=== PATIENT | female | born 1990 | race Caucasian/White ===

== ENCOUNTER 2019-02-21 11:17 | Inpatient (IN) | payer BC, OTHER ==
[2019-02-21] MEDS ORDERED: Nalbuphine 10 MG/1 ML Vial IVPUSH PRN (12:27)
[2019-02-21] MEDS ORDERED: Ondansetron 4 MG/2 ML SDV IVPUSH PRN (12:27)
[2019-02-21] MEDS ORDERED: Calcium Carbonate 500 MG Tab.Chew PO PRN (12:27)
[2019-02-21] MEDS ORDERED: Sodium Chloride 0.9% 10 ML Syringe FLUSH PRN (12:27)
[2019-02-21] MEDS ORDERED: Oxytocin/Lactated Ringers 10 UNIT/1,000 ML BAG IV SCH ×2 (12:30)
--- NOTE | 2019-02-21 12:35 | PCM.LDHP ---
L&D History of Present Illness - General Date of Service: 02/21/19 Admit Problem/Dx: Patient Status Order with Admit Dx/Problem 02/21/19 11:40 Patient Status [ADT] Routine 02/21/19 12:27 Patient Status [ADT] Routine Admission Diagnosis/Problem Admission Diagnosis/Problem Spontaneous rupture of membranes Source of Information: Patient History Limitations: Reports: No Limitations - History of Present Illness Introduction:: Patient is a 28 y/o at 37 4/7 wks who presents with SROM. Thinks maybe had some smaller gushes of fluid around midnight. Did not have a large loss of fluid until late this morning. No strong contractions yet. Otherwise doing well - Related Data Allergies/Adverse Reactions: Allergies Allergy/AdvReac Type Severity Reaction Status Date / Time No Known Allergies Allergy Verified 02/21/19 11:39 Past Medical History [employer] History: Reports: , Spontaneous : 2 Para: 0 LMP (Approximate): Psychiatric History: Reports: Anxiety, Depression Endocrine/Metabolic History: Reports: Diabetes, Gestational, Hypothyroidism - Past Surgical History HEENT Surgical History: Reports: Tonsillectomy Female Surgical History: Reports: D&C Social & Family History - Tobacco Use Smoking Status *Q: Former Smoker - Alcohol Use Alcohol Use History: No - Recreational Drug Use Recreational Drug Use: No H&P Review of Systems - Review of Systems: Review Of Systems: See Below General: Reports: No Symptoms Pulmonary: Reports: No Symptoms Cardiovascular: Reports: No Symptoms Gastrointestinal: Reports: No Symptoms Genitourinary: Reports: No Symptoms Musculoskeletal: Reports: No Symptoms Psychiatric: Reports: No Symptoms Neurological: Reports: No Symptoms L&D Exam - Exam Exam: See Below - Vital Signs Weight: 110.223 kg - OB Specific Contraction Intensity: Mild Movement: Active Heart Tones: Present Heart Tones per Min: 140 Heart Rate (FHR) Variability: Moderate (6-25 bmp) Presentation: Vertex - Suarez Score Suarez Score Cervix Position: Anterior Suarez Score Consistency: Soft Suarez Score Effacement: >80% Suarez Score Dilation: 3-4 cm Suarez Score Infant's Station: -1 ,0 Suarez Score Total: 11 - Exam General: Alert, Oriented, Cooperative Lungs: Clear to Auscultation, Normal Respiratory Effort Cardiovascular: Regular Rate, Regular Rhythm GI/Abdominal Exam: Soft, Non-Tender Genitourinary: Normal external exam Extremities: Normal Inspection Skin: Warm, Dry, Intact - Patient Data Lab Results Last 24 hrs: Laboratory Results - last 24 hr 02/21/19 Range/Units 11:36 Membrane Rupture Positive H Result Diagrams: 02/21/19 12:45 - Problem List (1) Gestational diabetes SNOMED Code(s): 74578029 ICD Code: O24.419 - GESTATIONAL DIABETES MELLITUS IN , UNSP CONTROL Status: Acute Current Visit: Yes Qualifiers: Gestational diabetes mellitus control: insulin-controlled Trimester: third trimester Qualified Code(s): O24.414 - Gestational diabetes mellitus in , insulin controlled (2) 37 weeks gestation of SNOMED Code(s): 84095357 ICD Code: Z3A.37 - 37 WEEKS GESTATION OF Status: Acute Current Visit: Yes (3) Spontaneous rupture of membranes SNOMED Code(s): 750356422 ICD Code: [id number] - Status: Acute Current Visit: Yes Problem List Initiated/Reviewed/Updated: Yes Orders Last 24hrs: Active Orders 24 hr Category Date Time Status Patient Status [ADT] Routine ADT 02/21/19 11:40 Active Patient Status [ADT] Routine ADT 02/21/19 12:27 Ordered Activity as Tolerated [RC] PFP Care 02/21/19 12:27 Ordered Blood Glucose Check, Bedside [RC] Q4H Care 02/21/19 12:27 Ordered Communication Order [RC] ASDIRECTED Care 02/21/19 12:27 Ordered Heart Tones [RC] ASDIRECTED Care 02/21/19 12:28 Ordered Non Stress Test [RC] PER UNIT ROUTINE Care 02/21/19 11:40 Active Peripheral IV Care [RC] . DIRECTED Care 02/21/19 12:28 Ordered Vital Signs [RC] PER UNIT ROUTINE Care 02/21/19 11:40 Active Regular Diet [DIET] Diet 02/21/19 Lunch Ordered CBC W/O DIFF,HEMOGRAM [HEME] Routine Lab 02/21/19 12:27 Ordered RAPID PLASMA REAGIN,RPR [CHEM] Routine Lab 02/21/19 12:27 Ordered TYPE AND SCREEN [BBK] Routine Lab 02/21/19 12:27 Ordered Calcium Carbonate [Tums] Med 02/21/19 12:27 Ordered 1,000 mg PO Q2H PRN Lactated Ringers [Ringers, Lactated] 1,000 ml Med 02/21/19 12:30 Ordered IV ASDIRECTED Levothyroxine Med 02/22/19 06:00 Ordered 75 mcg PO ACBREAKFAST Nalbuphine [Nubain] Med 02/21/19 12:27 Ordered 10 mg IVPUSH Q2H PRN Ondansetron [Zofran] Med 02/21/19 12:27 Ordered 4 mg IVPUSH Q4H PRN Oxytocin/Lactated Ringers [Pitocin in LR 10 Units/1,000 Med 02/21/19 12:30 Ordered ML] 10 unit in 1,000 ml IV .CONTINUOUS Oxytocin/Lactated Ringers [Pitocin in LR 10 Units/1,000 Med 02/21/19 12:30 Ordered ML] 10 unit in 1,000 ml IV TITRATE Sodium Chloride 0.9% [Saline Flush] Med 02/21/19 12:27 Ordered 10 ml FLUSH ASDIRECTED PRN Electronic Heart Tones Ext w TOCO [WOMSER] Oth 02/21/19 12:27 Ordered Routine Electronic Heart Tones Internal [WOMSER] Per Unit Oth 02/21/19 12:27 Ordered Routine Peripheral IV Insertion Adult [OM.PC] Routine Oth 02/21/19 12:27 Ordered Resuscitation Status Routine Resus Stat 02/21/19 11:40 Ordered Medication Orders Calcium Carbonate/Glycine (Tums) 1,000 mg PO Q2H PRN PRN Reason: Indigestion Lactated Ringer's (Ringers, Lactated) 1,000 mls @ 100 mls/hr IV ASDIRECTED KARI Oxytocin/Lactated Ringer's (Pitocin In Lr 10 Units/1,000 Ml) 10 unit in 1,000 mls @ 500 mls/hr IV .CONTINUOUS KARI Oxytocin/Lactated Ringer's (Pitocin In Lr 10 Units/1,000 Ml) 10 unit in 1,000 mls @ 12 mls/hr IV TITRATE KARI; Protocol Levothyroxine Sodium (Levothyroxine) 75 mcg PO ACBREAKFAST KARI Nalbuphine HCl (Nubain) 10 mg IVPUSH Q2H PRN PRN Reason: Pain Ondansetron HCl (Zofran) 4 mg IVPUSH Q4H PRN PRN Reason: Nausea/Vomiting Sodium Chloride (Saline Flush) 10 ml FLUSH ASDIRECTED PRN PRN Reason: Keep Vein Open Assessment/Plan Comment:: * Labs * GBS negative * Will likely start augmentation with pitocin given length of time potentially ruptured * Blood sugars q4 for now, continue home insulin regimen * Pain management per patient preference * Anticipate
[2019-02-21] MEDS ORDERED: fentaNYL/Bupivacaine/NS 2 MCG-0.125% 250 ML EPIDUR PRN (12:42)
[2019-02-21] MEDS ORDERED: ePHEDrine 50 MG/ML SDV IVPUSH PRN (12:42)
[2019-02-21] MEDS ORDERED: diphenhydrAMINE 50 MG/ML SDV IVPUSH PRN (12:42)
[2019-02-21] MEDS ORDERED: fentaNYL 100 MCG/2 ML SDV EPIDUR PRN (12:42)
[2019-02-21] MEDS: Lactated Ringers 1,000 ML IV SCH ×2 (13:42→16:35)
[2019-02-21] MEDS ORDERED: Bupivacaine 0.25% 10 ML SDV ONE (14:00)
--- NOTE | 2019-02-21 14:39 | PCM.PREANE ---
Preanesthetic Assessment - Procedure Proposed Procedure: EPIDURAL - Anesthesia/Transfusion/Family Hx Anesthesia History: Prior Anesthesia Without Reaction Family History of Anesthesia Reaction: No Transfusion History: No Prior Transfusion(s) - Review of Systems General: No Symptoms, Night Sweats Cardiovascular: No Symptoms Gastrointestinal: Abdominal Pain (labor) Neurological: No Symptoms Other: Reports: None - Physical Assessment Vital Signs: Last Vital Signs Temp -13.8 C L 02/21/19 12:41 Pulse 84 02/21/19 12:41 Resp 15 02/21/19 12:41 BP 127/82 02/21/19 12:41 Pulse Ox 99 02/21/19 12:41 Height: 1.63 m Weight: 105.687 kg ASA Class: 2 Mental Status: Alert & Oriented x3 Airway Class: Mallampati = 1 Dentition: Reports: Normal Dentition Thyro-Mental Finger Breadths: 3 Mouth Opening Finger Breadths: 3 ROM/Head Extension: Full Lungs: Clear to Auscultation, Normal Respiratory Effort Cardiovascular: Regular Rate, Regular Rhythm - Lab Values: Laboratory Last Values WBC 11.38 K/mm3 (3.98-10.04) H 02/21/19 12:45 RBC 4.83 M/mm3 (3.98-5.22) 02/21/19 12:45 Hgb 13.6 gm/dl (11.2-15.7) 02/21/19 12:45 Hct 40.1 % (34.1-44.9) 02/21/19 12:45 MCV 83.0 fl (79.4-94.8) 02/21/19 12:45 MCH 28.2 pg (25.6-32.2) 02/21/19 12:45 MCHC 33.9 g/dl (32.2-35.5) 02/21/19 12:45 RDW Std Deviation 43.1 fL (36.4-46.3) 02/21/19 12:45 Plt Count 278 K/mm3 (182-369) 02/21/19 12:45 MPV 9.6 fl (9.4-12.3) 02/21/19 12:45 Membrane Rupture Positive H 02/21/19 11:36 Blood Type O POSITIVE 02/21/19 12:45 Gel Antibody Screen Negative 02/21/19 12:45 - Allergies Allergies/Adverse Reactions: Allergies Allergy/AdvReac Type Severity Reaction Status Date / Time No Known Allergies Allergy Verified 02/21/19 11:39 - Anesthesia Plan Pre-Op Medication Ordered: None - Acknowledgements Anesthesia Type Planned: Epidural Pt an Appropriate Candidate for the Planned Anesthesia: Yes Alternatives and Risks of Anesthesia Discussed w Pt/Guardian: Yes Pt/Guardian Understands and Agrees with Anesthesia Plan: Yes PreAnesthesia Questionnaire - Past Health History Medical/Surgical History: Denies Medical/Surgical History Gastrointestinal History: Reports: GERD - Infectious Disease History Infectious Disease History: Reports: C-Difficile - SUBSTANCE USE Smoking Status *Q: Former Smoker Tobacco Use Within Last Twelve Months: Cigarettes Second Hand Smoke Exposure: No Recreational Drug Use History: No - CURRENT (IN HOUSE) MEDS Current Meds: Current Medications Calcium Carbonate/Glycine (Tums) 1,000 mg PO Q2H PRN PRN Reason: Indigestion Diphenhydramine HCl (Benadryl) 25 mg IVPUSH Q6H PRN PRN Reason: Itching Ephedrine Sulfate (Ephedrine Sulfate) 5 mg IVPUSH ASDIRECTED PRN PRN Reason: HYPOTENTSION Fentanyl (Sublimaze) 100 mcg EPIDUR Q3H PRN PRN Reason: Pain Last Admin: 02/21/19 14:26 Dose: 100 mcg Fentanyl/Bupivacaine HCl (Fentanyl/Bupivacaine/Ns 2 Mcg-0.125% 250 Ml) 2 mcg EPIDUR CONTINUOUS PRN PRN Reason: Pain Last Admin: 02/21/19 14:27 Dose: 2 mcg Lactated Ringer's (Ringers, Lactated) 1,000 mls @ 100 mls/hr IV ASDIRECTED KARI Last Admin: 02/21/19 13:42 Dose: 100 mls/hr Oxytocin/Lactated Ringer's (Pitocin In Lr 10 Units/1,000 Ml) 10 unit in 1,000 mls @ 500 mls/hr IV .CONTINUOUS KARI Oxytocin/Lactated Ringer's (Pitocin In Lr 10 Units/1,000 Ml) 10 unit in 1,000 mls @ 12 mls/hr IV TITRATE KARI; Protocol Levothyroxine Sodium (Levothyroxine) 75 mcg PO ACBREAKFAST KARI Nalbuphine HCl (Nubain) 10 mg IVPUSH Q2H PRN PRN Reason: Pain Ondansetron HCl (Zofran) 4 mg IVPUSH Q4H PRN PRN Reason: Nausea/Vomiting Levemir 100 Units/Ml (Ptom) 0 each SUBCUT BEDTIME KARI Novolog 100 Units/Ml (Ptom) 0 each SUBCUT ACDINNER KARI Sodium Chloride (Saline Flush) 10 ml FLUSH ASDIRECTED PRN PRN Reason: Keep Vein Open
[2019-02-21] MEDS ORDERED: NOVOLOG 100 UNIT/ML SUBCUT SCH (16:00)
--- NOTE | 2019-02-21 17:28 | PCM.DEL ---
L & D Note - General Info Date of Service: 02/21/19 - Delivery Note Labor: Spontaneous Delivery Outcome: Livebirth Delivery Method: Spontaneous Vaginal Delivery-Single Delivery Mode: Spontaneous Presentation: Right Occiput Anterior (ARBEN) Nuchal Cord: None Anesthesia Type: Epidural Amniotic Fluid Description: Clear Episiotomy Type: None Laceration: 2nd Degree, Perineal Suture type: Vicryl Suture size: 2-0 Placenta: Intact, Spontaneous Cord: 3 Vessels Estimated Blood Loss: 200 Resuscitation Needed: Yes : Bulb Syringe, Stimulated, Warmed, [place] Used Delivery Comments (Free Text/Narrative):: Patient found to be complete and began pushing. With maternal pushing effort head delivered from an ARBEN presentation. No nuchal cord present. With gentle downward traction the shoulders and body delivered. Infant placed on maternal abdomen. Cord clamped and cut. Cord blood obtained. Placenta allowed time to separate and expelled intact. Inspection of perineum following delivery showed a 2nd degree laceration. This was repaired with a 2-0 vicryl in the typical fashion. - General Info Date of Service: 02/21/19 - Patient Data Vitals - Most Recent: Last Vital Signs Temp -13.8 C L 02/21/19 12:41 Pulse 84 02/21/19 12:41 Resp 15 02/21/19 12:41 BP 127/82 02/21/19 12:41 Pulse Ox 99 02/21/19 12:41 Weight - Most Recent: 105.687 kg I&O - Last 24 Hours: Intake & Output 02/21/19 02/21/19 02/21/19 06:59 14:59 22:59 Intake Total 1000 Balance 1000 Lab Results Last 24 Hours: Laboratory Results - last 24 hr 02/21/19 02/21/19 02/21/19 Range/Units 11:36 12:45 12:45 WBC 11.38 H (3.98-10.04) K/mm3 RBC 4.83 (3.98-5.22) M/mm3 Hgb 13.6 (11.2-15.7) gm/dl Hct 40.1 (34.1-44.9) % MCV 83.0 (79.4-94.8) fl MCH 28.2 (25.6-32.2) pg MCHC 33.9 (32.2-35.5) g/dl RDW Std Deviation 43.1 (36.4-46.3) fL Plt Count 278 (182-369) K/mm3 MPV 9.6 (9.4-12.3) fl POC Glucose (70-105) mg/dL Membrane Rupture Positive H Blood Type O POSITIVE Gel Antibody Screen Negative 02/21/19 Range/Units 15:04 WBC (3.98-10.04) K/mm3 RBC (3.98-5.22) M/mm3 Hgb (11.2-15.7) gm/dl Hct (34.1-44.9) % MCV (79.4-94.8) fl MCH (25.6-32.2) pg MCHC (32.2-35.5) g/dl RDW Std Deviation (36.4-46.3) fL Plt Count (182-369) K/mm3 MPV (9.4-12.3) fl POC Glucose 83 (70-105) mg/dL Membrane Rupture Blood Type Gel Antibody Screen Med Orders - Current: Current Medications Calcium Carbonate/Glycine (Tums) 1,000 mg PO Q2H PRN PRN Reason: Indigestion Diphenhydramine HCl (Benadryl) 25 mg IVPUSH Q6H PRN PRN Reason: Itching Ephedrine Sulfate (Ephedrine Sulfate) 5 mg IVPUSH ASDIRECTED PRN PRN Reason: HYPOTENTSION Fentanyl (Sublimaze) 100 mcg EPIDUR Q3H PRN PRN Reason: Pain Last Admin: 02/21/19 14:26 Dose: 100 mcg Fentanyl/Bupivacaine HCl (Fentanyl/Bupivacaine/Ns 2 Mcg-0.125% 250 Ml) 2 mcg EPIDUR CONTINUOUS PRN PRN Reason: Pain Last Admin: 02/21/19 14:27 Dose: 2 mcg Lactated Ringer's (Ringers, Lactated) 1,000 mls @ 100 mls/hr IV ASDIRECTED KARI Last Admin: 02/21/19 16:35 Dose: 100 mls/hr Oxytocin/Lactated Ringer's (Pitocin In Lr 10 Units/1,000 Ml) 10 unit in 1,000 mls @ 500 mls/hr IV .CONTINUOUS KARI Oxytocin/Lactated Ringer's (Pitocin In Lr 10 Units/1,000 Ml) 10 unit in 1,000 mls @ 12 mls/hr IV TITRATE KARI; Protocol Levothyroxine Sodium (Levothyroxine) 75 mcg PO ACBREAKFAST KARI Nalbuphine HCl (Nubain) 10 mg IVPUSH Q2H PRN PRN Reason: Pain Ondansetron HCl (Zofran) 4 mg IVPUSH Q4H PRN PRN Reason: Nausea/Vomiting Levemir 100 Units/Ml (Ptom) 0 each SUBCUT BEDTIME KARI Novolog 100 Units/Ml (Ptom) 0 each SUBCUT ACDINNER KARI Sodium Chloride (Saline Flush) 10 ml FLUSH ASDIRECTED PRN PRN Reason: Keep Vein Open - Problem List & Annotations (1) 37 weeks gestation of SNOMED Code(s): 95924310 Code(s): Z3A.37 - 37 WEEKS GESTATION OF Status: Acute Current Visit: Yes (2) Gestational diabetes SNOMED Code(s): 13769055 Code(s): O24.419 - GESTATIONAL DIABETES MELLITUS IN , UNSP CONTROL Status: Acute Current Visit: Yes Qualifiers: Gestational diabetes mellitus control: insulin-controlled Trimester: third trimester Qualified Code(s): O24.414 - Gestational diabetes mellitus in , insulin controlled (3) Spontaneous rupture of membranes SNOMED Code(s): 295199359 Code(s): CPQ9647 - Status: Acute Current Visit: Yes (4) Vaginal delivery SNOMED Code(s): 247684597 Code(s): O80 - ENCOUNTER FOR FULL-TERM UNCOMPLICATED DELIVERY Status: Acute Current Visit: Yes - Problem List Review Problem List Initiated/Reviewed/Updated: Yes - My Orders Last 24 Hours: My Active Orders 02/21/19 11:40 Patient Status [ADT] Routine Vital Signs [RC] PER UNIT ROUTINE Resuscitation Status Routine 02/21/19 12:27 Patient Status [ADT] Routine Activity as Tolerated [RC] PFP Blood Glucose Check, Bedside [RC] Q4H Communication Order [RC] ASDIRECTED Calcium Carbonate [Tums] 1,000 mg PO Q2H PRN Nalbuphine [Nubain] 10 mg IVPUSH Q2H PRN Ondansetron [Zofran] 4 mg IVPUSH Q4H PRN Sodium Chloride 0.9% [Saline Flush] 10 ml FLUSH ASDIRECTED PRN Electronic Heart Tones Ext w TOCO [WOMSER] Routine Electronic Heart Tones Internal [WOMSER] Per Unit Routine Peripheral IV Insertion Adult [OM.PC] Routine 02/21/19 12:28 Heart Tones [RC] ASDIRECTED Peripheral IV Care [RC] . DIRECTED 02/21/19 12:30 Lactated Ringers [Ringers, Lactated] 1,000 ml IV ASDIRECTED Oxytocin/Lactated Ringers [Pitocin in LR 10 Units/1,000 ML] 10 unit in 1,000 ml IV .CONTINUOUS Oxytocin/Lactated Ringers [Pitocin in LR 10 Units/1,000 ML] 10 unit in 1,000 ml IV TITRATE 02/21/19 12:45 RAPID PLASMA REAGIN,RPR [CHEM] Routine 02/21/19 14:24 PATIENT RETYPE [BBK] Routine 02/21/19 16:00 Patient's Own Medication [Ptom] 0 each SUBCUT ACDINNER 02/21/19 17:25 Patient Status Manage Transfer [TRANSFER] Routine 02/21/19 21:00 Patient's Own Medication [Ptom] 0 each SUBCUT BEDTIME 02/21/19 Lunch Regular Diet [DIET] 02/22/19 06:00 Levothyroxine 75 mcg PO ACBREAKFAST - Assessment Assessment:: 28 y/o G1 now P1011 PPD#0 from at 37 4/7 wks - Plan Plan:: * Routine cares * Encourage breast feeding * Can stop insulin. Fasting blood sugar in AM * Discharge home in 1-2 days
[2019-02-21] MEDS ORDERED: Misoprostol 200 MCG Tab ONE (17:44)
[2019-02-21] MEDS ORDERED: Acetaminophen 325 MG Tab PO PRN (17:59)
[2019-02-21] MEDS: Ibuprofen 600 MG Tab PO PRN (18:24)
[2019-02-21] MEDS: Docusate Sodium 100 MG Cap PO PRN (18:24)
[2019-02-21] MEDS: Witch Hazel Medicated Pads 40/Jar TOP PRN (18:24)
[2019-02-21] MEDS: Benzocaine/Menthol 20%-0.5% Spray 56 GM Canister TOP PRN (18:25)
[2019-02-21] MEDS ORDERED: LEVEMIR 100 UNIT/ML SUBCUT SCH (21:00)
[2019-02-22] MEDS: Ibuprofen 600 MG Tab PO PRN ×2 (02:43→20:49)
[2019-02-22] MEDS: Levothyroxine 75 MCG Tab PO SCH (05:54)
--- NOTE | 2019-02-22 06:33 | PCM.PNPP ---
- General Info Date of Service: 02/22/19 Functional Status: Reports: Pain Controlled, Tolerating Diet, Ambulating, Urinating - Review of Systems General: Reports: No Symptoms Pulmonary: Reports: No Symptoms Cardiovascular: Reports: No Symptoms Gastrointestinal: Reports: No Symptoms Genitourinary: Reports: No Symptoms Musculoskeletal: Reports: No Symptoms Neurological: Reports: No Symptoms - Patient Data Vital Signs - Most Recent: Last Vital Signs Temp 36.9 C 02/22/19 02:39 Pulse 87 02/22/19 02:39 Resp 15 02/22/19 02:39 BP 115/64 02/22/19 02:39 Pulse Ox 98 02/22/19 02:39 Weight - Most Recent: 105.687 kg I&O - Last 24 Hours: Intake & Output 02/21/19 02/21/19 02/22/19 14:59 22:59 06:59 Intake Total 1000 500 Balance 1000 500 Lab Results - Last 24 Hours: Laboratory Results - last 24 hr 02/21/19 02/21/19 02/21/19 Range/Units 11:36 12:45 12:45 WBC 11.38 H (3.98-10.04) K/mm3 RBC 4.83 (3.98-5.22) M/mm3 Hgb 13.6 (11.2-15.7) gm/dl Hct 40.1 (34.1-44.9) % MCV 83.0 (79.4-94.8) fl MCH 28.2 (25.6-32.2) pg MCHC 33.9 (32.2-35.5) g/dl RDW Std Deviation 43.1 (36.4-46.3) fL Plt Count 278 (182-369) K/mm3 MPV 9.6 (9.4-12.3) fl POC Glucose (70-105) mg/dL Membrane Rupture Positive H RPR Non-reactive (NONREACTIVE) Blood Type Gel Antibody Screen 02/21/19 02/21/19 Range/Units 12:45 15:04 WBC (3.98-10.04) K/mm3 RBC (3.98-5.22) M/mm3 Hgb (11.2-15.7) gm/dl Hct (34.1-44.9) % MCV (79.4-94.8) fl MCH (25.6-32.2) pg MCHC (32.2-35.5) g/dl RDW Std Deviation (36.4-46.3) fL Plt Count (182-369) K/mm3 MPV (9.4-12.3) fl POC Glucose 83 (70-105) mg/dL Membrane Rupture RPR (NONREACTIVE) Blood Type O POSITIVE Gel Antibody Screen Negative Med Orders - Current: Current Medications Acetaminophen (Tylenol) 650 mg PO Q4H PRN PRN Reason: mild pain or fever Benzocaine/Menthol (Dermoplast Pain Relief [place]) 0 gm TOP ASDIRECTED PRN PRN Reason: Perineal Comfort Measure Last Admin: 02/21/19 18:25 Dose: 1 can Docusate Sodium (Colace) 100 mg PO BID PRN PRN Reason: Constipation Last Admin: 02/21/19 18:24 Dose: 100 mg Ibuprofen (Motrin) 600 mg PO Q6H PRN PRN Reason: Mild pain or fever Last Admin: 02/22/19 02:43 Dose: 600 mg Levothyroxine Sodium (Levothyroxine) [facility] Last Admin: 02/22/19 05:54 Dose: Not Given Jose Hargroveel (Tucks) 1 pad TOP ASDIRECTED PRN PRN Reason: Perineal Comfort Measure Last Admin: 02/21/19 18:24 Dose: 1 jar Discontinued Medications Calcium Carbonate/Glycine (Tums) 1,000 mg PO Q2H PRN PRN Reason: Indigestion Diphenhydramine HCl (Benadryl) 25 mg IVPUSH Q6H PRN PRN Reason: Itching Ephedrine Sulfate (Ephedrine Sulfate) 5 mg IVPUSH ASDIRECTED PRN PRN Reason: HYPOTENTSION Fentanyl (Sublimaze) 100 mcg EPIDUR Q3H PRN PRN Reason: Pain Last Admin: 02/21/19 14:26 Dose: 100 mcg Fentanyl/Bupivacaine HCl (Fentanyl/Bupivacaine/Ns 2 Mcg-0.125% 250 Ml) 2 mcg EPIDUR CONTINUOUS PRN PRN Reason: Pain Last Admin: 02/21/19 14:27 Dose: 2 mcg Lactated Ringer's (Ringers, Lactated) 1,000 mls @ 100 mls/hr IV ASDIRECTED [facility] Last Admin: 02/21/19 16:35 Dose: 100 mls/hr Oxytocin/Lactated Ringer's (Pitocin In Lr 10 Units/1,000 Ml) 10 unit in 1,000 mls @ 500 mls/hr IV .CONTINUOUS KARI Last Admin: 02/21/19 17:08 Dose: 500 mls/hr Oxytocin/Lactated Ringer's (Pitocin In Lr 10 Units/1,000 Ml) 10 unit in 1,000 mls @ 12 mls/hr IV TITRATE KARI; Protocol Misoprostol (Cytotec) Confirm Administered Dose 600 mcg .ROUTE .STK-MED ONE Stop: 02/21/19 17:45 Last Admin: 02/21/19 17:45 Dose: 600 mcg Nalbuphine HCl (Nubain) 10 mg IVPUSH Q2H PRN PRN Reason: Pain Ondansetron HCl (Zofran) 4 mg IVPUSH Q4H PRN PRN Reason: Nausea/Vomiting Levemir 100 Units/Ml (Ptom) 0 each SUBCUT BEDTIME KARI Novolog 100 Units/Ml (Ptom) 0 each SUBCUT ACDINNER KARI Sodium Chloride (Saline Flush) 10 ml FLUSH ASDIRECTED PRN PRN Reason: Keep Vein Open - Interaction Disposition, : [place] in Room with Family Infant Interaction: Holding Feeding: Attempted ; Nursed Fair/Poor Support Person: - Recovery Exam Fundal Tone: Firm Fundal Level: At Umbilicus Fundal Placement: Midline Lochia Amount: Small Lochia Color: Rubra/Red Perineum Description: Other (see below) Other Perinuem Description: second degree with repair Episiotomy/Laceration: Approximated Bladder Status: Voiding - Exam General: Alert, Oriented, Cooperative GI/Abdominal Exam: Soft, Non-Tender Extremities: Normal Inspection Skin: Warm, Dry, Intact - Problem List & Annotations (1) 37 weeks gestation of SNOMED Code(s): 41994929 Code(s): Z3A.37 - 37 WEEKS GESTATION OF Status: Acute Current Visit: Yes (2) Gestational diabetes SNOMED Code(s): 56554638 Code(s): O24.419 - GESTATIONAL DIABETES MELLITUS IN , UNSP CONTROL Status: Acute Current Visit: Yes Qualifiers: Gestational diabetes mellitus control: insulin-controlled Trimester: third trimester Qualified Code(s): O24.414 - Gestational diabetes mellitus in , insulin controlled (3) Spontaneous rupture of membranes SNOMED Code(s): 931503631 Code(s): GJY7592 - Status: Acute Current Visit: Yes (4) Vaginal delivery SNOMED Code(s): 851585117 Code(s): O80 - ENCOUNTER FOR FULL-TERM UNCOMPLICATED DELIVERY Status: Acute Current Visit: Yes - Problem List Review Problem List Initiated/Reviewed/Updated: Yes - My Orders Last 24 Hours: My Active Orders 02/21/19 11:40 Resuscitation Status Routine 02/21/19 12:27 Activity as Tolerated [RC] PFP Blood Glucose Check, Bedside [RC] Q4H Communication Order [RC] ASDIRECTED 02/21/19 12:28 Heart Tones [RC] ASDIRECTED 02/21/19 17:59 Activity as Tolerated [RC] PER UNIT ROUTINE Vital Signs [RC] 03,09,15,21 Acetaminophen [Tylenol] 650 mg PO Q4H PRN Benzocaine/Menthol [Dermoplast Pain Relief [place]] See Dose Instructions TOP ASDIRECTED PRN Docusate Sodium [Colace] 100 mg PO BID PRN Ibuprofen [Motrin] 600 mg PO Q6H PRN Witch Talya [Tucks] 1 pad TOP ASDIRECTED PRN Assess Lochia [WOMSER] Per Unit Routine Assess Uterine Involution [WOMSER] Per Unit Routine Breast Pump [WOMSER] Per Unit Routine Heat Therapy [OM.PC] PRN Ice Therapy [OM.PC] Per Unit Routine Perineal Care [OM.PC] Per Unit Routine Peripheral IV Discontinue [OM.PC] Routine Sitz Bath [OM.PC] Per Unit Routine 02/21/19 Dinner Regular Diet [DIET] 02/22/19 06:00 Levothyroxine 75 mcg PO ACBREAKFAST 02/22/19 06:33 Blood Glucose Check, Bedside [RC] ONETIME 02/22/19 17:59 Heat Therapy [OM.PC] PRN - Assessment Assessment:: 28 y/o G1 now P1011 PPD#1 from at 37 4/7 wks - Plan Plan:: * Routine cares * Encourage breast feeding * Fasting blood sugar this am 92. No further monitoring needed. 2hr GTT at 6 weeks * Discharge home tomorrow
--- NOTE | 2019-02-22 06:41 | PCM48HPAN ---
Post Anesthesia Note - EVALUATION WITHIN 48HRS OF ANESTHETIC Vital Signs in Normal Range: Yes Patient Participated in Evaluation: Yes Respiratory Function Stable: Yes Airway Patent: Yes Cardiovascular Function Stable: Yes Hydration Status Stable: Yes Pain Control Satisfactory: Yes Nausea and Vomiting Control Satisfactory: Yes Mental Status Recovered: Yes Vital Signs: Last Vital Signs Temp 36.9 C 02/22/19 02:39 Pulse 87 02/22/19 02:39 Resp 15 02/22/19 02:39 BP 115/64 02/22/19 02:39 Pulse Ox 98 02/22/19 02:39 - COMMENTS/OBSERVATIONS Free Text/Narrative:: no anesthesia complications noted
[2019-02-22] MEDS: Docusate Sodium 100 MG Cap PO PRN (15:37)
[2019-02-22] MEDS: Witch Hazel Medicated Pads 40/Jar TOP PRN (20:48)
[2019-02-22] MEDS: Benzocaine/Menthol 20%-0.5% Spray 56 GM Canister TOP PRN (20:49)
[2019-02-23] MEDS: Docusate Sodium 100 MG Cap PO PRN (05:16)
[2019-02-23] MEDS: Ibuprofen 600 MG Tab PO PRN (05:16)
[2019-02-23] MEDS: Levothyroxine 75 MCG Tab PO SCH (06:20)
--- NOTE | 2019-02-23 06:46 | PCM.DCSUM1 ---
Discharge Summary - Hospital Course Diagnosis: Stroke: No - Discharge Data Discharge Date: 02/23/19 Discharge Disposition: Home, Self-Care 01 Condition: Good - Referral to Home Health Primary Care Physician: Yenny Holcomb MD - Patient Instructions Diet: Usual Diet as Tolerated Activity: No Strenuous Activities Driving: May Drive Today Notify Provider of: Fever, Increased Pain, Swelling and Redness, Drainage, Nausea and/or Vomiting - Discharge Plan *PRESCRIPTION DRUG MONITORING PROGRAM REVIEWED*: No *COPY OF PRESCRIPTION DRUG MONITORING REPORT IN PATIENT JOSEPH: No Referrals: Yenny Holcomb MD [Primary Care Provider] - - Discharge Summary/Plan Comment DC Time >30 min.: No - General Info Date of Service: 02/23/19 Functional Status: Reports: Pain Controlled - Review of Systems General: Reports: No Symptoms HEENT: Reports: No Symptoms Pulmonary: Reports: No Symptoms Cardiovascular: Reports: No Symptoms Gastrointestinal: Reports: No Symptoms Genitourinary: Reports: No Symptoms Musculoskeletal: Reports: No Symptoms Skin: Reports: No Symptoms Neurological: Reports: No Symptoms Psychiatric: Reports: No Symptoms - Patient Data Vitals - Most Recent: Last Vital Signs Temp 36.8 C 02/23/19 05:12 Pulse 78 02/23/19 05:12 Resp 15 02/23/19 05:12 BP 115/56 L 02/23/19 05:12 Pulse Ox 99 02/23/19 05:12 Weight - Most Recent: 105.687 kg I&O - Last 24 hours: Intake & Output 02/22/19 02/22/19 02/23/19 14:59 22:59 06:59 Intake Total 0 Balance 0 Med Orders - Current: Current Medications Acetaminophen (Tylenol) 650 mg PO Q4H PRN PRN Reason: mild pain or fever Benzocaine/Menthol (Dermoplast Pain Relief [place]) 0 gm TOP ASDIRECTED PRN PRN Reason: Perineal Comfort Measure Last Admin: 02/22/19 20:49 Dose: 1 can Docusate Sodium (Colace) 100 mg PO BID PRN PRN Reason: Constipation Last Admin: 02/23/19 05:16 Dose: 100 mg Ibuprofen (Motrin) 600 mg PO Q6H PRN PRN Reason: Mild pain or fever Last Admin: 02/23/19 05:16 Dose: 600 mg Levothyroxine Sodium (Levothyroxine) 75 mcg PO ACBREAKFAST KARI Last Admin: 02/23/19 06:20 Dose: Not Given Jose Babin (Tucks) 1 pad TOP ASDIRECTED PRN PRN Reason: Perineal Comfort Measure Last Admin: 02/22/19 20:48 Dose: 1 jar Discontinued Medications Bupivacaine HCl (Sensorcaine-Mpf 0.25%) 10 ml .ROUTE .STK-MED ONE Stop: 02/21/19 14:01 Calcium Carbonate/Glycine (Tums) 1,000 mg PO Q2H PRN PRN Reason: Indigestion Diphenhydramine HCl (Benadryl) 25 mg IVPUSH Q6H PRN PRN Reason: Itching Ephedrine Sulfate (Ephedrine Sulfate) 5 mg IVPUSH ASDIRECTED PRN PRN Reason: HYPOTENTSION Fentanyl (Sublimaze) 100 mcg EPIDUR Q3H PRN PRN Reason: Pain Last Admin: 02/21/19 14:26 Dose: 100 mcg Fentanyl/Bupivacaine HCl (Fentanyl/Bupivacaine/Ns 2 Mcg-0.125% 250 Ml) 2 mcg EPIDUR CONTINUOUS PRN PRN Reason: Pain Last Admin: 02/21/19 14:27 Dose: 2 mcg Lactated Ringer's (Ringers, Lactated) 1,000 mls @ 100 mls/hr IV ASDIRECTED KARI Last Admin: 02/21/19 16:35 Dose: 100 mls/hr Oxytocin/Lactated Ringer's (Pitocin In Lr 10 Units/1,000 Ml) 10 unit in 1,000 mls @ 500 mls/hr IV .CONTINUOUS KARI Last Admin: 02/21/19 17:08 Dose: 500 mls/hr Oxytocin/Lactated Ringer's (Pitocin In Lr 10 Units/1,000 Ml) 10 unit in 1,000 mls @ 12 mls/hr IV TITRATE KARI; Protocol Misoprostol (Cytotec) Confirm Administered Dose 600 mcg .ROUTE .STK-MED ONE Stop: 02/21/19 17:45 Last Admin: 02/21/19 17:45 Dose: 600 mcg Nalbuphine HCl (Nubain) 10 mg IVPUSH Q2H PRN PRN Reason: Pain Ondansetron HCl (Zofran) 4 mg IVPUSH Q4H PRN PRN Reason: Nausea/Vomiting Levemir 100 Units/Ml (Ptom) 0 each SUBCUT BEDTIME KARI Novolog 100 Units/Ml (Ptom) 0 each [facility] Last Admin: 02/22/19 18:42 Dose: Not Given Sodium Chloride (Saline Flush) 10 ml FLUSH ASDIRECTED PRN PRN Reason: Keep Vein Open - Exam General: Reports: Alert, Oriented HEENT: Reports: Pupils Equal, Pupils Reactive, EOMI, Mucous Membr. Moist/[place] Neck: Reports: Supple Lungs: Reports: Clear to Auscultation, Normal Respiratory Effort Cardiovascular: Reports: Regular Rate, Regular Rhythm GI/Abdominal Exam: Normal Bowel Sounds, Soft, Non-Tender, No Organomegaly, No Distention, No Abnormal Bruit, No Mass, Pelvis Stable Rectal (Female) Exam: Normal Exam, Normal Rectal Tone Back Exam: Reports: Normal Inspection, Full Range of Motion Extremities: Normal Inspection, Normal Range of Motion, Non-Tender, No Pedal Edema, Normal Capillary Refill Skin: Reports: Warm, Dry, Intact Wound/Incisions: Reports: Healing Well Neurological: Reports: No New Focal Deficit Psy/Mental Status: Reports: Alert, Normal Affect, Normal Mood
== END 2019-02-23 10:25 | disposition home or self-care (01) | DRG 807 ==
LOC: JD.OB 11:17 → JD.OBCHECK 11:17 → JD.OB 12:27 → OBSVTOIN 17:08 → JD.OB 17:09
PROVIDERS: ADMIT Obstetrics & Gynecology; ATTEND Obstetrics & Gynecology
PROC: 10E0XZZ Delivery of Products of Conception, External Approach (ICD-10-PCS; principal; 2019-02-21)
PROC: 0KQM0ZZ Repair Perineum Muscle, Open Approach (ICD-10-PCS; 2019-02-21)
PROC: 3E0R3BZ Introduction of Anesthetic Agent into Spinal Canal, Percutaneous Approach (ICD-10-PCS; 2019-02-21)
DX: O24.429 Gestational diabetes mellitus in childbirth, unspecified control (principal); Z37.0 Single live birth; O70.1 Second degree perineal laceration during delivery; Z3A.37 37 weeks gestation of pregnancy
CPT/HCPCS: 36415; 51701; 59025; 59409; 82962; 84112; 85027; 86592; 86850; 86900; 86901; A9270-GY; J2590; J3010; J3490; J7120

== ENCOUNTER 2020-12-11 06:47 | Inpatient (IN) | payer BC, OTHER ==
[~2020-12-11 06:47] MED LIST: Lidocaine 1.5% with EPINEPHrine 1:200,000 5 ML Amp ONE; ePHEDrine 50 MG/ML SDV ONE
[2020-12-11] MEDS ORDERED: Nalbuphine 10 MG/1 ML Vial IVPUSH PRN (06:58)
[2020-12-11] MEDS ORDERED: Ondansetron 4 MG/2 ML SDV IVPUSH PRN (06:58)
[2020-12-11] MEDS ORDERED: Sodium Chloride 0.9% 10 ML Syringe FLUSH PRN (06:58)
[2020-12-11] MEDS ORDERED: Oxytocin/Lactated Ringers 10 UNIT/1,000 ML BAG IV SCH ×2 (07:00)
--- NOTE | 2020-12-11 07:08 | PCM.LDHP ---
L&D History of Present Illness - General Date of Service: 12/11/20 Admit Problem/Dx: Patient Status Order with Admit Dx/Problem 12/11/20 06:58 Patient Status [ADT] Routine Admission Diagnosis/Problem Admission Diagnosis/Problem Gestational diabetes mellitus Source of Information: Patient History Limitations: Reports: No Limitations - History of Present Illness Introduction:: Patient is a 30 y/o at 38 1/7 wks being induced for poorly controlled GODMA2. Has required increasing insulin, but still without improvement in fasting numbers. Currently on Levemir of 54 units and 12 units of Novalog. Doing well today. Good FM. 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: , 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 : 3 Para: 1 LMP (Approximate): Psychiatric History: Reports: Anxiety, Depression Endocrine/Metabolic History: Reports: Diabetes, Gestational, Hypothyroidism - Past Surgical History HEENT Surgical History: Reports: Tonsillectomy Female Surgical History: Reports: D&C Social & Family History - Family History Family Medical History: No Pertinent Family History - Tobacco Use Tobacco Use Status *Q: Former Tobacco User - Caffeine Use Caffeine Use: Reports: None - Alcohol Use Alcohol Use History: No - Recreational Drug Use Recreational Drug Use: No H&P Review of Systems - Review of Systems: Review Of Systems: See Below General: Reports: No Symptoms Pulmonary: Reports: No Symptoms Cardiovascular: Reports: No Symptoms Gastrointestinal: Reports: No Symptoms Genitourinary: Reports: No Symptoms Musculoskeletal: Reports: No Symptoms Psychiatric: Reports: No Symptoms L&D Exam - Exam Exam: See Below - OB Specific Contraction Intensity: Irritability Movement: Active Heart Tones: Present Heart Tones per Min: 140 Heart Rate (FHR) Variability: Moderate (6-25 bpm) Presentation: Vertex - Suarez Score Suarez Score Cervix Position: Midposition Suarez Score Consistency: Soft Suarez Score Effacement: >80% Suarez Score Dilation: 3-4 cm Suarez Score Infant's Station: -2 Suarez Score Total: 9 - Exam General: Alert, Oriented, Cooperative Lungs: Clear to Auscultation, Normal Respiratory Effort Cardiovascular: Regular Rate, Regular Rhythm GI/Abdominal Exam: Soft, Non-Tender Genitourinary: Normal external exam Extremities: Normal Inspection Skin: Warm, Dry, Intact - Patient Data Result Diagrams: 12/11/20 07:15 - Problem List (1) 38 weeks gestation of SNOMED Code(s): 85293282 ICD Code: Z3A.38 - 38 WEEKS GESTATION OF Status: Acute Current Visit: Yes (2) Gestational diabetes SNOMED Code(s): 93133128 ICD Code: O24.419 - GESTATIONAL DIABETES MELLITUS IN , UNSP CONTROL Status: Acute Current Visit: No Qualifiers: Gestational diabetes mellitus control: insulin-controlled Trimester: third trimester Qualified Code(s): O24.414 - Gestational diabetes mellitus in , insulin controlled Problem List Initiated/Reviewed/Updated: Yes Orders Last 24hrs: Active Orders 24 hr Category Date Time Status Patient Status [ADT] Routine ADT 12/11/20 06:58 Ordered Blood Glucose Check, Bedside [RC] Q2HR Care 12/11/20 06:58 Ordered Communication Order [RC] ASDIRECTED Care 12/11/20 06:58 Ordered Communication Order [RC] ASDIRECTED Care 12/11/20 06:58 Ordered Communication Order [RC] ASDIRECTED Care 12/11/20 06:58 Ordered Non Stress Test [RC] PER UNIT ROUTINE Care 12/11/20 06:58 Ordered Notify Provider [RC] ASDIRECTED Care 12/11/20 06:58 Ordered Notify Provider [RC] PRN Care 12/11/20 06:58 Ordered Peripheral IV Care [RC] . DIRECTED Care 12/11/20 06:59 Ordered Up ad Inez [RC] ASDIRECTED Care 12/11/20 06:59 Ordered Vaginal Exam [RC] ASDIRECTED Care 12/11/20 06:58 Ordered Vital Signs [RC] ASDIRECTED Care 12/11/20 06:58 Ordered Regular Diet [DIET] Diet 12/11/20 Breakfast Ordered CBC W/O DIFF,HEMOGRAM [HEME] Routine Lab 12/11/20 06:58 Ordered CORONAVIRUS COVID-19 JULIET [MOLEC] Stat Lab 12/11/20 07:00 Ordered RAPID PLASMA REAGIN,RPR [CHEM] Routine Lab 12/11/20 06:58 Ordered TYPE AND SCREEN [BBK] Routine Lab 12/11/20 06:58 Ordered Lactated Ringers [Ringers, Lactated] 1,000 ml Med 12/11/20 07:00 Ordered IV ASDIRECTED Nalbuphine [Nubain] Med 12/11/20 06:58 Ordered 10 mg IVPUSH Q2H PRN Ondansetron [Zofran] Med 12/11/20 06:58 Ordered 4 mg IVPUSH Q4H PRN Oxytocin/Lactated Ringers [Pitocin in LR 10 Units/1,000 Med 12/11/20 07:00 Ordered ML] 10 unit in 1,000 ml IV .CONTINUOUS Oxytocin/Lactated Ringers [Pitocin in LR 10 Units/1,000 Med 12/11/20 07:00 Ordered ML] 10 unit in 1,000 ml IV TITRATE Sodium Chloride 0.9% [Saline Flush] Med 12/11/20 06:58 Ordered 10 ml FLUSH ASDIRECTED PRN Electronic Heart Tones Internal [WOMSER] Per Unit Oth 12/11/20 06:58 Ordered Routine Peripheral IV Insertion Adult [OM.PC] Routine Oth 12/11/20 06:58 Ordered Resuscitation Status Routine Resus Stat 12/11/20 06:58 Ordered Assessment/Plan Comment:: * Labs done * GBS negative * Pitocin and AROM for IOL * Pain management per patient preference * Took home Levemir of 54 units last night at 2000. Blood sugars q2 hours * Anticipate
[2020-12-11] MEDS: Lactated Ringers 1,000 ML IV SCH ×3 (07:42→11:34)
[2020-12-11] MEDS ORDERED: fentaNYL 100 MCG/2 ML SDV EPIDUR PRN (10:41)
[2020-12-11] MEDS ORDERED: diphenhydrAMINE 50 MG/ML SDV IVPUSH PRN (10:41)
[2020-12-11] MEDS ORDERED: Bupivacaine/fentaNYL/NS 100 ML Bag EPIDUR PRN (10:41)
[2020-12-11] MEDS ORDERED: ePHEDrine 50 MG/ML SDV IVPUSH PRN (10:41)
--- NOTE | 2020-12-11 11:31 | PCM.PREANE ---
Preanesthetic Assessment - Procedure Proposed Procedure: Continuous labor epidural - Anesthesia/Transfusion/Family Hx Anesthesia History: Prior Anesthesia Without Reaction Transfusion History: No Prior Transfusion(s) - Review of Systems General: No Symptoms Pulmonary: No Symptoms Cardiovascular: No Symptoms Gastrointestinal: No Symptoms Neurological: No Symptoms Other: Reports: None - Physical Assessment Vital Signs: Last Vital Signs Temp 98.0 F 12/11/20 06:58 Pulse 99 12/11/20 06:58 Resp 16 12/11/20 06:58 BP 121/80 12/11/20 06:58 Pulse Ox 97 12/11/20 06:58 Height: 1.65 m Weight: 103.6 kg ASA Class: 2 Mental Status: Alert & Oriented x3 Airway Class: Mallampati = 2 Dentition: Reports: Normal Dentition Thyro-Mental Finger Breadths: 3 Mouth Opening Finger Breadths: 3 ROM/Head Extension: Full Lungs: Clear to Auscultation, Normal Respiratory Effort Cardiovascular: Regular Rate, Regular Rhythm - Lab Values: Laboratory Last Values WBC 11.04 K/mm3 (3.98-10.04) H 12/11/20 07:15 RBC 4.51 M/mm3 (3.98-5.22) 12/11/20 07:15 Hgb 12.9 gm/dl (11.2-15.7) 12/11/20 07:15 Hct 38.2 % (34.1-44.9) 12/11/20 07:15 MCV 84.7 fl (79.4-94.8) 12/11/20 07:15 MCH 28.6 pg (25.6-32.2) 12/11/20 07:15 MCHC 33.8 g/dl (32.2-35.5) 12/11/20 07:15 RDW Std Deviation 46.2 fL (36.4-46.3) 12/11/20 07:15 Plt Count 226 K/mm3 (182-369) 12/11/20 07:15 MPV 9.8 fl (9.4-12.3) 12/11/20 07:15 POC Glucose 91 mg/dL (70-99) 12/11/20 10:13 SARS-CoV-2 RNA (JULIET) Negative (NEGATIVE) 12/11/20 07:38 Blood Type O POSITIVE 12/11/20 07:15 Gel Antibody Screen Negative 12/11/20 07:15 - Allergies Allergies/Adverse Reactions: Allergies Allergy/AdvReac Type Severity Reaction Status Date / Time No Known Allergies Allergy Verified 12/11/20 09:02 - Acknowledgements Anesthesia Type Planned: Epidural Pt an Appropriate Candidate for the Planned Anesthesia: Yes Alternatives and Risks of Anesthesia Discussed w Pt/Guardian: Yes Pt/Guardian Understands and Agrees with Anesthesia Plan: Yes PreAnesthesia Questionnaire - Past Health History Medical/Surgical History: Denies Medical/Surgical History Gastrointestinal History: Reports: GERD 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 - Past Surgical History HEENT Surgical History: Reports: Oral Surgery, Tonsillectomy Other HEENT Surgeries/Procedures: [place] teeth Female Surgical History: Reports: D&C - SUBSTANCE USE Tobacco Use Status *Q: Former Tobacco User Tobacco Use Within Last Twelve Months: Cigarettes Second Hand Smoke Exposure: No Recreational Drug Use History: No - HOME MEDS Home Medications: Home Meds Levothyroxine 75 mcg PO ACBREAKFAST tablet 02/23/19 [Rx] Cyclobenzaprine [Flexeril] 1 tab PO DAILY 12/11/20 [History] Insulin Aspart [Novolog Flexpen] 100 unit SQ TID 12/11/20 [History] Insulin Detemir [Levemir] 52 units SUBCUT DAILY 12/11/20 [History] Sertraline [Zoloft] 100 mg PO DAILY 12/11/20 [History] - CURRENT (IN HOUSE) MEDS Current Meds: Current Medications Diphenhydramine HCl (Diphenhydramine 50 Mg/Ml Sdv) 25 mg IVPUSH Q6H PRN PRN Reason: pruritis Ephedrine Sulfate (Ephedrine 50 Mg/Ml Sdv) 5 mg IVPUSH ASDIRECTED PRN PRN Reason: Hypotension Fentanyl (Fentanyl 100 Mcg/2 Ml Sdv) 100 mcg EPIDUR Q3H PRN PRN Reason: Pain Last Admin: 12/11/20 10:48 Dose: 100 mcg Documented by: Fentanyl/Bupivacaine HCl (Bupivacaine/Fentanyl/Ns 100 Ml Bag) 100 ml EPIDUR ASDIRECTED PRN PRN Reason: Pain Last Admin: 12/11/20 10:51 Dose: 100 ml Documented by: Oxytocin/Lactated Ringer's (Pitocin In Lr 10 Units/1,000 Ml) 10 unit in 1,000 mls @ 12 mls/hr IV TITRATE KARI; Protocol Last Titration: 12/11/20 10:16 Dose: 8 munits/min, 48 mls/hr Documented by: Oxytocin/Lactated Ringer's (Pitocin In Lr 10 Units/1,000 Ml) 10 unit in 1,000 mls @ 500 mls/hr IV .CONTINUOUS KARI Lactated Ringer's (Ringers, Lactated) 1,000 mls @ 40 mls/hr IV ASDIRECTED KARI Last Admin: 12/11/20 10:56 Dose: 999 mls/hr Documented by: Nalbuphine HCl (Nalbuphine 10 Mg/1 Ml Vial) 10 mg IVPUSH Q2H PRN PRN Reason: Pain Ondansetron HCl (Ondansetron 4 Mg/2 Ml Sdv) 4 mg IVPUSH Q4H PRN PRN Reason: Nausea/Vomiting Sodium Chloride (Sodium Chloride 0.9% 10 Ml Syringe) 10 ml FLUSH ASDIRECTED PRN PRN Reason: Keep Vein Open
--- NOTE | 2020-12-11 14:25 | PCM.DEL ---
L & D Note - General Info Date of Service: 12/11/20 - Delivery Note Labor: Induced by ARM, Induced by Oxytocin Delivery Outcome: Livebirth Infant Delivery Method: Spontaneous Vaginal Delivery-Single Infant Delivery Mode: Spontaneous Presentation: Left Occiput Anterior (JAMEY) Nuchal Cord: None Anesthesia Type: Epidural Amniotic Fluid Description: Clear Episiotomy Type: None Laceration: 2nd Degree, Perineal Suture type: Vicryl Suture size: 2-0 Placenta: Intact, Spontaneous Cord: 3 Vessels Estimated Blood Loss: 300 : Bulb Syringe, Stimulated, Warmed, [place] Used, Warmer Used Delivery Comments (Free Text/Narrative):: Patient found to be complete and began pushing. With maternal pushing effort head delivered from JAMEY presentation. No nuchal cord. With gentle downward traction the shoulders and body delivered. placed on maternal abdomen. Cord clamped and cut. Cord blood obtained. Placenta allowed time to separate and expelled intact. Inspection of perineum showed 2nd degree laceration which was repaired with a 2-0 Vicryl rapide - General Info Date of Service: 12/11/20 - Patient Data Vitals - Most Recent: Last Vital Signs Temp 36.7 C 12/11/20 06:58 Pulse 99 12/11/20 06:58 Resp 16 12/11/20 06:58 BP 121/80 12/11/20 06:58 Pulse Ox 97 12/11/20 06:58 Weight - Most Recent: 103.6 kg - Exam Urinary Catheter Total Time: 0Days 0Hours - Problem List & Annotations (1) 38 weeks gestation of SNOMED Code(s): 31221941 Code(s): Z3A.38 - 38 WEEKS GESTATION OF Status: Acute Current Visit: Yes (2) Gestational diabetes SNOMED Code(s): 76166573 Code(s): O24.419 - GESTATIONAL DIABETES MELLITUS IN , UNSP CONTROL Status: Acute Current Visit: No Qualifiers: Gestational diabetes mellitus control: insulin-controlled Trimester: third trimester Qualified Code(s): O24.414 - Gestational diabetes mellitus in , insulin controlled (3) Vaginal delivery SNOMED Code(s): 526433116 Code(s): O80 - ENCOUNTER FOR FULL-TERM UNCOMPLICATED DELIVERY Status: Acute Current Visit: No - Problem List Review Problem List Initiated/Reviewed/Updated: Yes - My Orders Last 24 Hours: My Active Orders 12/11/20 06:58 Patient Status [ADT] Routine Blood Glucose Check, Bedside [RC] Q2HR Communication Order [RC] ASDIRECTED Communication Order [RC] ASDIRECTED Communication Order [RC] ASDIRECTED Non Stress Test [RC] PER UNIT ROUTINE Notify Provider [RC] ASDIRECTED Notify Provider [RC] PRN Vaginal Exam [RC] ASDIRECTED Vital Signs [RC] ASDIRECTED Nalbuphine [Nubain] 10 mg IVPUSH Q2H PRN Ondansetron [Zofran] 4 mg IVPUSH Q4H PRN Sodium Chloride 0.9% [Saline Flush] 10 ml FLUSH ASDIRECTED PRN Electronic Heart Tones Internal [WOMSER] Per Unit Routine Peripheral IV Insertion Adult [OM.PC] Routine Resuscitation Status Routine 12/11/20 06:59 Peripheral IV Care [RC] . DIRECTED Up ad Inez [RC] ASDIRECTED 12/11/20 Breakfast Regular Diet [DIET] Lactated Ringers [Ringers, Lactated] 1,000 ml IV ASDIRECTED Oxytocin/Lactated Ringers [Pitocin in LR 10 Units/1,000 ML] 10 unit in 1,000 ml IV .CONTINUOUS Oxytocin/Lactated Ringers [Pitocin in LR 10 Units/1,000 ML] 10 unit in 1,000 ml IV TITRATE 12/11/20 07:15 RAPID PLASMA REAGIN,RPR [CHEM] Routine - Assessment Assessment:: PPD#0 - Plan Plan:: * Routine cares * Breast feeding * Fasting blood sugar tomorrow am . No additional insulin at this time. 2hr GTT at 6 weeks * Discharge home in 1-2 days
[2020-12-11] MEDS ORDERED: Acetaminophen 325 MG Tab PO PRN (14:38)
[2020-12-11] MEDS ORDERED: Benzocaine/Menthol 20%-0.5% Spray 56 GM Canister TOP PRN (14:38)
[2020-12-11] MEDS ORDERED: Witch Hazel Medicated Pads 40/Jar TOP PRN (14:38)
[2020-12-11] MEDS ORDERED: Docusate Sodium 100 MG Cap PO PRN (14:38)
[2020-12-11] MEDS: Ibuprofen 600 MG Tab PO PRN (21:03)
[2020-12-12] MEDS ORDERED: Levothyroxine 75 MCG Tab PO SCH (06:00)
[2020-12-12] MEDS: Ibuprofen 600 MG Tab PO PRN (06:13)
--- NOTE | 2020-12-12 07:15 | PCM.PNPP ---
- General Info Date of Service: 12/12/20 Functional Status: Reports: Pain Controlled, Tolerating Diet, Ambulating, Urinating - Review of Systems General: Reports: No Symptoms Pulmonary: Reports: No Symptoms Cardiovascular: Reports: No Symptoms Gastrointestinal: Reports: No Symptoms Genitourinary: Reports: No Symptoms Musculoskeletal: Reports: Back Pain Neurological: Reports: No Symptoms - Patient Data Vital Signs - Most Recent: Last Vital Signs Temp 36.1 C 12/12/20 03:32 Pulse 81 12/12/20 03:32 Resp 14 12/12/20 03:32 BP 106/66 12/12/20 03:32 Pulse Ox 97 12/12/20 03:32 Weight - Most Recent: 103.6 kg I&O - Last 24 Hours: Intake & Output 12/11/20 12/12/20 12/12/20 22:59 06:59 14:59 Intake Total 1999 Balance 1999 Lab Results - Last 24 Hours: Laboratory Results - last 24 hr 12/11/20 12/11/20 12/11/20 Range/Units 07:15 07:15 07:15 WBC 11.04 H (3.98-10.04) K/mm3 RBC 4.51 (3.98-5.22) M/mm3 Hgb 12.9 (11.2-15.7) gm/dl Hct 38.2 (34.1-44.9) % MCV 84.7 (79.4-94.8) fl MCH 28.6 (25.6-32.2) pg MCHC 33.8 (32.2-35.5) g/dl RDW Std Deviation 46.2 (36.4-46.3) fL Plt Count 226 (182-369) K/mm3 MPV 9.8 (9.4-12.3) fl POC Glucose (70-99) mg/dL RPR Non-reactive (NONREACTIVE) SARS-CoV-2 RNA (JULIET) (NEGATIVE) Blood Type O POSITIVE Gel Antibody Screen Negative 12/11/20 12/11/20 12/11/20 Range/Units 07:38 08:11 10:13 WBC (3.98-10.04) K/mm3 RBC (3.98-5.22) M/mm3 Hgb (11.2-15.7) gm/dl Hct (34.1-44.9) % MCV (79.4-94.8) fl MCH (25.6-32.2) pg MCHC (32.2-35.5) g/dl RDW Std Deviation (36.4-46.3) fL Plt Count (182-369) K/mm3 MPV (9.4-12.3) fl POC Glucose 90 91 (70-99) mg/dL RPR (NONREACTIVE) SARS-CoV-2 RNA (JULIET) Negative (NEGATIVE) Blood Type Gel Antibody Screen 12/11/20 12/11/20 12/12/20 Range/Units 11:57 14:02 06:10 WBC (3.98-10.04) K/mm3 RBC (3.98-5.22) M/mm3 Hgb (11.2-15.7) gm/dl Hct (34.1-44.9) % MCV (79.4-94.8) fl MCH (25.6-32.2) pg MCHC (32.2-35.5) g/dl RDW Std Deviation (36.4-46.3) fL Plt Count (182-369) K/mm3 MPV (9.4-12.3) fl POC Glucose 93 76 98 (70-99) mg/dL RPR (NONREACTIVE) SARS-CoV-2 RNA (JULIET) (NEGATIVE) Blood Type Gel Antibody Screen Med Orders - Current: Current Medications Acetaminophen (Acetaminophen 325 Mg Tab) 650 mg PO Q4H PRN PRN Reason: mild pain or fever Benzocaine/Menthol (Benzocaine/Menthol 20%-0.5% [place] 56 Gm Canister) 0 gm TOP ASDIRECTED PRN PRN Reason: Perineal Comfort Measure Docusate Sodium (Docusate Sodium 100 Mg Cap) 100 mg PO BID PRN PRN Reason: Constipation Last Admin: 12/11/20 21:03 Dose: 100 mg Documented by: Ibuprofen (Ibuprofen 600 Mg Tab) 600 mg PO Q6H PRN PRN Reason: Mild pain or fever Last Admin: 12/12/20 06:13 Dose: 600 mg Documented by: Levothyroxine Sodium (Levothyroxine 75 Mcg Tab) 75 mcg PO ACBREAKFAST KARI Last Admin: 12/12/20 06:11 Dose: 75 mcg Documented by: Sertraline HCl (Sertraline 50 Mg Tab) 100 mg PO DAILY KARI Witch Talya (Witch Talya Medicated Pads 40/Jar) 1 pad TOP ASDIRECTED PRN PRN Reason: Perineal Comfort Measure Discontinued Medications Diphenhydramine HCl (Diphenhydramine 50 Mg/Ml Sdv) 25 mg IVPUSH Q6H PRN PRN Reason: pruritis Ephedrine Sulfate (Ephedrine 50 Mg/Ml Sdv) 5 mg IVPUSH ASDIRECTED PRN PRN Reason: Hypotension Fentanyl (Fentanyl 100 Mcg/2 Ml Sdv) 100 mcg EPIDUR Q3H PRN PRN Reason: Pain Last Admin: 12/11/20 10:48 Dose: 100 mcg Documented by: Fentanyl/Bupivacaine HCl (Bupivacaine/Fentanyl/Ns 100 Ml Bag) 100 ml EPIDUR ASDIRECTED PRN PRN Reason: Pain Last Admin: 12/11/20 10:51 Dose: 100 ml Documented by: Oxytocin/Lactated Ringer's (Pitocin In Lr 10 Units/1,000 Ml) 10 unit in 1,000 mls @ 12 mls/hr IV TITRATE KARI; Protocol Last Titration: 12/11/20 14:09 Dose: 83.33 munits/min, 500 mls/hr Documented by: Oxytocin/Lactated Ringer's (Pitocin In Lr 10 Units/1,000 Ml) 10 unit in 1,000 mls @ 500 mls/hr IV .CONTINUOUS KARI Lactated Ringer's (Ringers, Lactated) 1,000 mls @ 40 mls/hr IV ASDIRECTED KARI Last Admin: 12/11/20 11:34 Dose: 999 mls/hr Documented by: Nalbuphine HCl (Nalbuphine 10 Mg/1 Ml Vial) 10 mg IVPUSH Q2H PRN PRN Reason: Pain Ondansetron HCl (Ondansetron 4 Mg/2 Ml Sdv) 4 mg IVPUSH Q4H PRN PRN Reason: Nausea/Vomiting Sodium Chloride (Sodium Chloride 0.9% 10 Ml Syringe) 10 ml FLUSH ASDIRECTED PRN PRN Reason: Keep Vein Open - Infant Interaction Infant Disposition, : Santa [place] in Room with Family Interaction: Holding Infant Infant Feeding: Breastfed ; Nursed Well Support Person: - Recovery Exam Fundal Tone: Firm Fundal Level: 1 Fingerbreadths Below Umbilicus Fundal Placement: Midline Lochia Amount: Small Lochia Color: Rubra/Red Perineum Description: Other (see below) Other Perinuem Description: 1st degree with repair Episiotomy/Laceration: Approximated Bladder Status: Voiding Urinary Elimination: Voided - Exam General: Alert, Oriented, Cooperative GI/Abdominal Exam: Soft, Non-Tender Extremities: Normal Inspection - Problem List & Annotations (1) 38 weeks gestation of SNOMED Code(s): 88527488 Code(s): Z3A.38 - 38 WEEKS GESTATION OF Status: Acute Current Visit: Yes (2) Gestational diabetes SNOMED Code(s): 86684233 Code(s): O24.419 - GESTATIONAL DIABETES MELLITUS IN , UNSP CONTROL Status: Acute Current Visit: No Qualifiers: Gestational diabetes mellitus control: insulin-controlled Trimester: third trimester Qualified Code(s): O24.414 - Gestational diabetes mellitus in , insulin controlled (3) Vaginal delivery SNOMED Code(s): 473594799 Code(s): O80 - ENCOUNTER FOR FULL-TERM UNCOMPLICATED DELIVERY Status: Acute Current Visit: No - Problem List Review Problem List Initiated/Reviewed/Updated: Yes - My Orders Last 24 Hours: My Active Orders 12/11/20 06:58 Resuscitation Status Routine 12/11/20 14:38 Acetaminophen [TylenoL] 650 mg PO Q4H PRN Benzocaine/Menthol [Dermoplast Pain Relief [place]] See Dose Instructions TOP ASDIRECTED PRN Docusate Sodium [Colace] 100 mg PO BID PRN Ibuprofen [Motrin] 600 mg PO Q6H PRN witch Talya [Tucks] 1 pad TOP ASDIRECTED PRN Heat Therapy [OM.PC] PRN 12/11/20 14:38 Activity as Tolerated [RC] PER UNIT ROUTINE Vital Signs [RC] 03,,15,21 Assess Lochia [WOMSER] Per Unit Routine Assess Uterine Involution [WOMSER] Per Unit Routine Breast Pump [WOMSER] Per Unit Routine Ice Therapy [OM.PC] Per Unit Routine Perineal Care [OM.PC] Per Unit Routine Peripheral IV Discontinue [OM.PC] Routine Sitz Bath [OM.PC] Per Unit Routine 12/11/20 Dinner Regular Diet [DIET] 12/12/20 05:00 Blood Glucose Check, Bedside [RC] ONETIME 12/12/20 06:00 Levothyroxine 75 mcg PO ACBREAKFAST 12/12/20 09:00 Sertraline [Zoloft] 100 mg PO DAILY 12/12/20 14:38 Heat Therapy [ALYSON] PRN - Assessment Assessment:: PPD#1 - Plan Plan:: * Routine cares * Breast feeding * Fasting blood sugar tomorrow this AM 98. 2hr GTT at 6 weeks * Continue home zoloft * Discharge home today
--- NOTE | 2020-12-12 07:18 | PCM.DCSUM1 ---
Discharge Summary - Discharge Data Discharge Date: 12/12/20 Discharge Disposition: Home, Self-Care 01 Condition: Good - Referral to Home Health Primary Care Physician: Yenny Holcomb MD - Discharge Diagnosis/Problem(s) (1) 38 weeks gestation of SNOMED Code(s): 40070358 ICD Code: Z3A.38 - 38 WEEKS GESTATION OF Status: Acute (2) Gestational diabetes SNOMED Code(s): 88462847 ICD Code: O24.419 - GESTATIONAL DIABETES MELLITUS IN , UNSP CONTROL Status: Acute Qualifiers: Gestational diabetes mellitus control: insulin-controlled Trimester: third trimester Qualified Code(s): O24.414 - Gestational diabetes mellitus in , insulin controlled (3) Vaginal delivery SNOMED Code(s): 346757751 ICD Code: O80 - ENCOUNTER FOR FULL-TERM UNCOMPLICATED DELIVERY Status: Acute - Patient Summary/Data Complications: None Consults: None Recommended Follow-up Testing/Procedures: Follow up in 3 weeks for check Hospital Course: 30 y/o at 38 1/7 wks who presented for IOL for poorly controlled GODMA2. Induction done with pitocin and AROM. Progressed well to complete dilation. Underwent an uncomplicated . See delivery note. did well and was discharged home on PPD#1 - Patient Instructions Diet: Regular Diet as Tolerated Activity: As Tolerated Activity, Other: Pelvic rest for 6 weeks Driving: May Drive Today Showering/Bathing: May Shower Showering/Bathing, Other: May Bathe Notify Provider of: Fever, Increased Pain, Swelling and Redness, Drainage, Nausea and/or Vomiting - Discharge Plan *PRESCRIPTION DRUG MONITORING PROGRAM REVIEWED*: No *COPY OF PRESCRIPTION DRUG MONITORING REPORT IN PATIENT JOSEPH: No Home Medications: Home Meds Levothyroxine 75 mcg PO ACBREAKFAST tablet 02/23/19 [Rx] Sertraline [Zoloft] 100 mg PO DAILY 12/11/20 [History] Docusate Sodium [Colace] 100 mg PO BID PRN cap 12/12/20 [Rx] Ibuprofen [Motrin] 600 mg PO Q6H PRN tablet 12/12/20 [Rx] Patient Handouts: Care After Vaginal Delivery Referrals: Yenny Holcomb MD [Primary Care Provider] - (3 weeks for check ) - Discharge Summary/Plan Comment DC Time >30 min.: No Total # of Minutes for Discharge Time: 15 - Patient Data Vitals - Most Recent: Last Vital Signs Temp 36.1 C 12/12/20 03:32 Pulse 81 12/12/20 03:32 Resp 14 12/12/20 03:32 BP 106/66 12/12/20 03:32 Pulse Ox 97 12/12/20 03:32 Weight - Most Recent: 103.6 kg I&O - Last 24 hours: Intake & Output 12/11/20 12/12/20 12/12/20 22:59 06:59 14:59 Intake Total 1999 Balance 1999 Lab Results - Last 24 hrs: Laboratory Results - last 24 hr 12/11/20 12/11/20 12/11/20 Range/Units 07:15 07:15 07:15 WBC 11.04 H (3.98-10.04) K/mm3 RBC 4.51 (3.98-5.22) M/mm3 Hgb 12.9 (11.2-15.7) gm/dl Hct 38.2 (34.1-44.9) % MCV 84.7 (79.4-94.8) fl MCH 28.6 (25.6-32.2) pg MCHC 33.8 (32.2-35.5) g/dl RDW Std Deviation 46.2 (36.4-46.3) fL Plt Count 226 (182-369) K/mm3 MPV 9.8 (9.4-12.3) fl POC Glucose (70-99) mg/dL RPR Non-reactive (NONREACTIVE) SARS-CoV-2 RNA (JULIET) (NEGATIVE) Blood Type O POSITIVE Gel Antibody Screen Negative 12/11/20 12/11/20 12/11/20 Range/Units 07:38 08:11 10:13 WBC (3.98-10.04) K/mm3 RBC (3.98-5.22) M/mm3 Hgb (11.2-15.7) gm/dl Hct (34.1-44.9) % MCV (79.4-94.8) fl MCH (25.6-32.2) pg MCHC (32.2-35.5) g/dl RDW Std Deviation (36.4-46.3) fL Plt Count (182-369) K/mm3 MPV (9.4-12.3) fl POC Glucose 90 91 (70-99) mg/dL RPR (NONREACTIVE) SARS-CoV-2 RNA (JULIET) Negative (NEGATIVE) Blood Type Gel Antibody Screen 12/11/20 12/11/20 12/12/20 Range/Units 11:57 14:02 06:10 WBC (3.98-10.04) K/mm3 RBC (3.98-5.22) M/mm3 Hgb (11.2-15.7) gm/dl Hct (34.1-44.9) % MCV (79.4-94.8) fl MCH (25.6-32.2) pg MCHC (32.2-35.5) g/dl RDW Std Deviation (36.4-46.3) fL Plt Count (182-369) K/mm3 MPV (9.4-12.3) fl POC Glucose 93 76 98 (70-99) mg/dL RPR (NONREACTIVE) SARS-CoV-2 RNA (JULIET) (NEGATIVE) Blood Type Gel Antibody Screen Med Orders - Current: Current Medications Acetaminophen (Acetaminophen 325 Mg Tab) 650 mg PO Q4H PRN PRN Reason: mild pain or fever Benzocaine/Menthol (Benzocaine/Menthol 20%-0.5% [place] 56 Gm Canister) 0 gm TOP ASDIRECTED PRN PRN Reason: Perineal Comfort Measure Docusate Sodium (Docusate Sodium 100 Mg Cap) 100 mg PO BID PRN PRN Reason: Constipation Last Admin: 12/11/20 21:03 Dose: 100 mg Documented by: Ibuprofen (Ibuprofen 600 Mg Tab) 600 mg PO Q6H PRN PRN Reason: Mild pain or fever Last Admin: 12/12/20 06:13 Dose: 600 mg Documented by: Levothyroxine Sodium (Levothyroxine 75 Mcg Tab) 75 mcg PO ACBREAKFAST KARI Last Admin: 12/12/20 06:11 Dose: 75 mcg Documented by: Sertraline HCl (Sertraline 50 Mg Tab) 100 mg PO DAILY KARI Witch Talya (Witch Talya Medicated Pads 40/Jar) 1 pad TOP ASDIRECTED PRN PRN Reason: Perineal Comfort Measure Discontinued Medications Diphenhydramine HCl (Diphenhydramine 50 Mg/Ml Sdv) 25 mg IVPUSH Q6H PRN PRN Reason: pruritis Ephedrine Sulfate (Ephedrine 50 Mg/Ml Sdv) 5 mg IVPUSH ASDIRECTED PRN PRN Reason: Hypotension Fentanyl (Fentanyl 100 Mcg/2 Ml Sdv) 100 mcg EPIDUR Q3H PRN PRN Reason: Pain Last Admin: 12/11/20 10:48 Dose: 100 mcg Documented by: Fentanyl/Bupivacaine HCl (Bupivacaine/Fentanyl/Ns 100 Ml Bag) 100 ml EPIDUR ASDIRECTED PRN PRN Reason: Pain Last Admin: 12/11/20 10:51 Dose: 100 ml Documented by: Oxytocin/Lactated Ringer's (Pitocin In Lr 10 Units/1,000 Ml) 10 unit in 1,000 mls @ 12 mls/hr IV TITRATE KARI; Protocol Last Titration: 12/11/20 14:09 Dose: 83.33 munits/min, 500 mls/hr Documented by: Oxytocin/Lactated Ringer's (Pitocin In Lr 10 Units/1,000 Ml) 10 unit in 1,000 mls @ 500 mls/hr IV .CONTINUOUS KARI Lactated Ringer's (Ringers, Lactated) 1,000 mls @ 40 mls/hr IV ASDIRECTED KARI Last Admin: 12/11/20 11:34 Dose: 999 mls/hr Documented by: Nalbuphine HCl (Nalbuphine 10 Mg/1 Ml Vial) 10 mg IVPUSH Q2H PRN PRN Reason: Pain Ondansetron HCl (Ondansetron 4 Mg/2 Ml Sdv) 4 mg IVPUSH Q4H PRN PRN Reason: Nausea/Vomiting Sodium Chloride (Sodium Chloride 0.9% 10 Ml Syringe) 10 ml FLUSH ASDIRECTED PRN PRN Reason: Keep Vein Open
[2020-12-12] MEDS ORDERED: Sertraline 50 MG Tab PO SCH (09:00)
--- NOTE | 2020-12-12 09:06 | PCM48HPAN ---
Post Anesthesia Note - EVALUATION WITHIN 48HRS OF ANESTHETIC Vital Signs in Normal Range: Yes Patient Participated in Evaluation: Yes Respiratory Function Stable: Yes Airway Patent: Yes Cardiovascular Function Stable: Yes Hydration Status Stable: Yes Pain Control Satisfactory: Yes Nausea and Vomiting Control Satisfactory: Yes Mental Status Recovered: Yes Vital Signs: Last Vital Signs Temp 97.0 F 12/12/20 03:32 Pulse 81 12/12/20 03:32 Resp 14 12/12/20 03:32 BP 106/66 12/12/20 03:32 Pulse Ox 97 12/12/20 03:32 - COMMENTS/OBSERVATIONS Free Text/Narrative:: Patient on day 1. Reports very minor back soreness. No apparent anesthesia complications noted
== END 2020-12-12 15:00 | disposition home or self-care (01) | DRG 560 ==
LOC: JD.OB 06:47 → OBSVTOIN 14:08 → JD.OB 14:08
PROVIDERS: ADMIT Obstetrics & Gynecology; ATTEND Obstetrics & Gynecology
PROC: 10E0XZZ Delivery of Products of Conception, External Approach (ICD-10-PCS; principal; 2020-12-11)
PROC: 10907ZC Drainage of Amniotic Fluid, Therapeutic from Products of Conception, Via Natural or Artificial Opening (ICD-10-PCS; 2020-12-11)
PROC: 3E033VJ Introduction of Other Hormone into Peripheral Vein, Percutaneous Approach (ICD-10-PCS; 2020-12-11)
PROC: 0KQM0ZZ Repair Perineum Muscle, Open Approach (ICD-10-PCS; 2020-12-11)
PROC: 3E0R3BZ Introduction of Anesthetic Agent into Spinal Canal, Percutaneous Approach (ICD-10-PCS; 2020-12-11)
PROC: 00HU33Z Insertion of Infusion Device into Spinal Canal, Percutaneous Approach (ICD-10-PCS; 2020-12-11)
DX: O24.424 Gestational diabetes mellitus in childbirth, insulin controlled (principal); Z37.0 Single live birth; O99.62 Diseases of the digestive system complicating childbirth; K21.9 Gastro-esophageal reflux disease without esophagitis; O99.344 Other mental disorders complicating childbirth; F41.9 Anxiety disorder, unspecified; F32.9 Major depressive disorder, single episode, unspecified; O99.284 Endocrine, nutritional and metabolic diseases complicating childbirth; Z20.822 Contact with and (suspected) exposure to COVID-19; E03.9 Hypothyroidism, unspecified; Z87.891 Personal history of nicotine dependence; O70.1 Second degree perineal laceration during delivery; Z3A.38 38 weeks gestation of pregnancy
CPT/HCPCS: 01967; 36415; 51702; 59025; 59409; 82947; 85027; 86592; 86850; 86900; 86901; A9270-GY; J2590; J3010; J7120; U0002